=== PATIENT | female | born 1950 | race Caucasian/White ===

== ENCOUNTER 2017-04-23 15:08 | Emergency (ER) | payer MEDICARE ==
[~2017-04-23] VITALS: Ht 165.1 cm; Wt 80.0 kg
[~2017-04-23 15:08] MED LIST: ADVIL200 MG PO; CALCIUM + D600 MG PO; COQ-10100 M1 PO; ESSIAC TONIC PO; FISH OIL1000 MG PO; GLUCOSAMINE CHO1 CA1 PO
[2017-04-23] MEDS ORDERED: ULTRAM50 M1 PO (16:27)
[2017-04-23 17:05] VITALS: BP 149/74
== END 2017-04-23 17:05 | disposition home or self-care (01) ==
LOC: ED 15:08
PROC: 0HQGXZZ Repair Left Hand Skin, External Approach (ICD-10-PCS; principal; 2017-04-23)
DX: S61.412A Laceration without foreign body of left hand, initial encounter (principal); S00.33XA Contusion of nose, initial encounter; S83.91XA Sprain of unspecified site of right knee, initial encounter; S73.101A Unspecified sprain of right hip, initial encounter; M19.90 Unspecified osteoarthritis, unspecified site; W10.8XXA Fall (on) (from) other stairs and steps, initial encounter; Y92.29 Other specified public building as the place of occurrence of the external cause